=== PATIENT | male | born 1995 ===

== ENCOUNTER 2017-12-10 15:13 | Observation (INO) | payer OTHER ==
[2017-12-10 17:18] LABS: ABS Basophils 0 10^3/ul (0-0.2); ABS Eosinophils 0 10^3/ul (0-0.6); ABS Lymphocytes 0.6 10^3/ul (1.0-4.8); ABS Monocytes 0.5 10^3/ul (0-0.8); ABS Neutrophils 12.5 10^3/ul (1.5-7.7); ABS Nucleated RBC 0.1 10^3/ul; Eosinophil % 0.1 % (0-6); Hematocrit 45 % (42-52); Hemoglobin 15.7 g/dl (14.0-18.0); Lymphocyte % 4.6 % (25-47); Mean Corpuscular HGB Conc 35 g/dl (31-36); Mean Corpuscular Hemoglobin 31 pg (27-31); Mean Corpuscular Volume 86 fL (80-94); Mean Platelet Volume 7.7 um3 (7.4-10.4); Nucleated Red Blood Cells % 0.4; Platelet Count 173 10^3/ul (150-450); Red Blood Count 5.15 10^6/ul (4.00-5.40); Red Cell Distribution Width 13 % (10.5-15); White Blood Count 13.7 10^3/ul (3.5-10.8)
[2017-12-10 17:23] LABS: EGFR Non-African American 94.3 (>60)
[2017-12-10] MEDS ORDERED: NS 0.9% 1000 ML* 1,000 ML IV ONE (20:40)
[2017-12-10] MEDS ORDERED: Morphine VIAL* 10 MG/ML 1 ML VIAL IV ONE (20:40)
[2017-12-10] MEDS ORDERED: Ondansetron INJ* 2 MG/ML VIAL IV ONE (20:40)
[2017-12-10] MEDS ORDERED: Iohexol 300* (CONTRAST) 10 ML SDV IV ONE (20:49)
[2017-12-10 21:13] LABS: Urine Appearance Clear; Urine Blood Negative (Negative); Urine Color Straw; Urine Ketones Negative (Negative); Urine Protein Negative (Negative); Urine Specific Gravity 1.011 (1.010-1.030); Urine Urobilinogen Negative (Negative)
[2017-12-10] MEDS ORDERED: Morphine INJ* 4 MG/ML 1 ML SYRINGE (NEW SYRINGE VERSION) ONE (21:24)
--- NOTE | 2017-12-10 21:50 | RAD ---
EXAM: CT Abdomen and Pelvis With Intravenous Contrast EXAM DATE/TIME: 12/10/2017 9:06 PM CLINICAL HISTORY: 22 years old, male; Pain; Abdominal pain; Generalized; Additional info: Rlq pain TECHNIQUE: Axial computed tomography images of the abdomen and pelvis with intravenous contrast. All CT scans at this facility use at least one of these dose optimization techniques: automated exposure control; mA and/or kV adjustment per patient size (includes targeted exams where dose is matched to clinical indication); or iterative reconstruction. Coronal and sagittal reformatted images were created and reviewed. CONTRAST: 100 ml of OMNI 300 administered intravenously. COMPARISON: No relevant prior studies available. FINDINGS: Lower thorax: No acute findings. ABDOMEN: Liver: Normal. No mass. Gallbladder and bile ducts: Normal. No calcified stones. No ductal dilation. Pancreas: Normal. No ductal dilation. Spleen: Normal. No splenomegaly. Adrenals: Normal. No mass. Kidneys and ureters: Normal. No hydronephrosis. Stomach and bowel: Incompletely distended grossly normal stomach. Normal caliber small bowel. No colonic masses or segmental wall thickening. Appendix: Dilated distal appendix measuring up to 1.2 cm which is thick walled and shows mild adjacent periappendiceal inflammatory stranding. No periappendiceal encapsulated fluid collections. PELVIS: Bladder: Thin-walled bladder with no focal nodularity, perivesicular stranding, or calcifications. Reproductive: Normal sized prostate. Normal seminal vesicles. ABDOMEN and PELVIS: Intraperitoneal space: Normal. No free air. No significant fluid collection. Bones/joints: No fractures. No suspicious bone lesions. Soft tissues: Normal. No hernias. Vasculature: Normal caliber aorta with no evidence of dissection or rupture. Patent IVC. Lymph nodes: Normal. No enlarged lymph nodes. IMPRESSION: Acute uncomplicated appendicitis. To contact [facility] with a general question: Operations Center - [phone] For direct physician to physician contact: Physician Hotline - [phone] [facility] ([facility] Facility ID #[id number])
--- NOTE | 2017-12-10 21:59 | ED ---
Abdominal Pain/Male - HPI Summary HPI Summary: Patient complains of sudden onset right lower quadrant pain, nausea, dry heaves starting this morning when he woke up. Abdominal pain described as sharp, constant. Denies fever, cough, sore throat, CP, SOB, change in urine, change in BM, penile discharge or pain, testicular pain/redness/swelling. Medical history is none. Abdominal/surgical history is none. - History of Current Complaint Chief Complaint: EDAbdPain Stated Complaint: RT SIDE ABD PAIN Time Seen by Provider: 12/10/17 20:27 Hx Obtained From: Patient Onset/Duration: Sudden Onset Timing: Constant Severity Initially: Moderate Severity Currently: Moderate Pain Intensity: 7 Pain Scale Used: 0-10 Numeric Location: Discrete At: RLQ Radiates: No Character: Sharp Aggravating Factor(s): Nothing Alleviating Factor(s): Nothing - Allergies/Home Medications Allergies/Adverse Reactions: Allergies Allergy/AdvReac Type Severity Reaction Status Date / Time No Known Allergies Allergy Verified 12/10/17 15:58 Home Medications: Home Medications NK [No Home Medications Reported] 12/10/17 [History Confirmed 12/10/17] PMH/Surg Hx/FS Hx/Imm Hx Endocrine/Hematology History: Denies: Hx Anticoagulant Therapy, Hx Diabetes Cardiovascular History: Denies: Hx Cardiac Arrest, Hx Hypertension History: Reports: Hx Dialysis Sensory History: Denies: Hx Contacts or Glasses Neurological History: Denies: Hx CVA - Immunization History Date of Tetanus Vaccine: utd Date of Influenza Vaccine: none Infectious Disease History: No Infectious Disease History: Denies: Traveled Outside the [place] in Last 30 Days - Social History Alcohol Use: Occasionally Substance Use Type: Reports: None Smoking Status (MU): Never Smoked Tobacco Review of Systems Constitutional: Negative Eyes: Negative ENT: Negative Cardiovascular: Negative Respiratory: Negative Positive: Abdominal Pain, Vomiting, Nausea Genitourinary: Negative Musculoskeletal: Negative Skin: Negative Neurological: Negative Psychological: Normal All Other Systems Reviewed And Are Negative: Yes Physical Exam Triage Information Reviewed: Yes Vital Signs On Initial Exam: Initial Vitals Temp Pulse Resp BP Pulse Ox 99.1 F 65 16 138/86 98 12/10/17 15:55 12/10/17 15:55 12/10/17 15:55 12/10/17 15:55 12/10/17 15:55 Vital Signs Reviewed: Yes Appearance: Positive: Well-Appearing Skin: Positive: Warm Head/Face: Positive: Normal Head/Face Inspection Eyes: Positive: Normal Neck: Positive: Supple Respiratory/Lung Sounds: Positive: Clear to Auscultation Cardiovascular: Positive: Normal Abdomen Description: Positive: [place] Tenderness Musculoskeletal: Positive: Normal Neurological: Positive: Normal Psychiatric: Positive: Normal AVPU Assessment: Alert - [place] Coma Scale Best Eye Response: 4 - Spontaneous Best Motor Response: 6 - Obeys Commands Best Verbal Response: 5 - Oriented Coma Scale Total: 15 Diagnostics - Vital Signs Vital Signs Temp Pulse Resp BP Pulse Ox 12/10/17 21:31 18 12/10/17 17:21 99.7 F 66 18 138/76 98 12/10/17 15:55 99.1 F 65 16 138/86 98 - Laboratory Lab Results: Lab Results 12/10/17 12/10/17 12/10/17 Range/Units 16:36 16:57 16:57 WBC 13.7 H (3.5-10.8) 10^3/ul RBC 5.15 (4.00-5.40) 10^6/ul Hgb 15.7 (14.0-18.0) g/dl Hct 45 (42-52) % MCV 86 (80-94) fL MCH 31 (27-31) pg MCHC 35 (31-36) g/dl RDW 13 (10.5-15) % Plt Count 173 (150-450) 10^3/ul MPV 7.7 (7.4-10.4) um3 Neut % (Auto) 91.5 H (38-83) % Lymph % (Auto) 4.6 L (25-47) % [place] % (Auto) 3.6 (0-7) % Eos % (Auto) 0.1 (0-6) % Baso % (Auto) 0.2 (0-2) % Absolute Neuts (auto) 12.5 H (1.5-7.7) 10^3/ul Absolute Lymphs (auto) 0.6 L (1.0-4.8) 10^3/ul Absolute Monos (auto) 0.5 (0-0.8) 10^3/ul Absolute Eos (auto) 0 (0-0.6) 10^3/ul Absolute Basos (auto) 0 (0-0.2) 10^3/ul Absolute Nucleated RBC 0.1 10^3/ul Nucleated RBC % 0.4 Sodium 137 (135-145) mmol/L Potassium 4.3 (3.5-5.0) mmol/L Chloride 101 (101-111) mmol/L Carbon Dioxide 29 (22-32) mmol/L Anion Gap 7 (2-11) mmol/L BUN 9 (6-24) mg/dL Creatinine 1.00 (0.67-1.17) mg/dL Est GFR ( Amer) 114.1 (>60) Est GFR (Non-Af Amer) 94.3 (>60) BUN/Creatinine Ratio 9.0 (8-20) Glucose 108 H (70-100) mg/dL Calcium 9.9 (8.6-10.3) mg/dL Total Bilirubin 0.80 (0.2-1.0) mg/dL AST 23 (13-39) U/L ALT 25 (7-52) U/L Alkaline Phosphatase 111 H (34-104) U/L C-Reactive Protein 4.23 (<8.01) mg/L Total Protein 7.4 (6.4-8.9) g/dL Albumin 5.0 (3.2-5.2) g/dL Globulin 2.4 (2-4) g/dL Albumin/Globulin Ratio 2.1 (1-3) Lipase 14 (11.0-82.0) U/L Urine Color Straw Urine Appearance Clear Urine pH 7.0 (5-9) Ur Specific [place] 1.011 (1.010-1.030) Urine Protein Negative (Negative) Urine Ketones Negative (Negative) Urine Blood Negative (Negative) Urine Nitrate Negative (Negative) Urine Bilirubin Negative (Negative) Urine Urobilinogen Negative (Negative) Ur Leukocyte Esterase Negative (Negative) Urine Glucose Negative (Negative) Result Diagrams: 12/10/17 16:57 12/10/17 16:57 Lab Statement: Any lab studies that have been ordered have been reviewed, and results considered in the medical decision making process. - CT ab/pel CT Interpretation: Positive (See Comments) - appendicitis CT Interpretation Completed By: Radiologist - Ultrasound No standard instances Ultrasound Interpretation: No Acute Changes - US GB Ultrasound Interpretation Completed By: Radiologist Abdominal Pain Fem Course/Dx - Course Course Of Treatment: Patient complains of sudden onset right lower quadrant pain , nausea, dry heaves starting this morning when he woke up. Abdominal pain described as sharp, constant. Denies fever, cough, sore throat, CP, SOB, change in urine, change in BM, penile discharge or pain, testicular pain/redness /swelling. Medical history is none. Abdominal/surgical history is none. Physical exam:. Positive right lower quadrant pain. WBC 13.7. Labs otherwise unremarkable. Vital signs within normal limits. CT abdomen and pelvis positive for appendicitis. We'll admit to Dr. Arrieta. Started on Zosyn IV. - Diagnoses Provider Diagnoses: Appendicitis Discharge - Sign-Out/Discharge Documenting (check all that apply): Patient Departure - Discharge Plan Condition: Stable Disposition: ADMITTED TO [facility] - Billing Disposition and Condition Condition: STABLE Disposition: Admitted to [facility]
[2017-12-10] MEDS ORDERED: Piperacillin/Tazobac ADVAN(*) 3.375 GM in NS 0.9% 100 ML* 100 ML IVPB ONE (22:02)
--- NOTE | 2017-12-10 22:06 | RAD ---
EXAM: US Abdomen Limited, Right Upper Quadrant EXAM DATE/TIME: 12/10/2017 9:46 PM CLINICAL HISTORY: 22 years old, male; Pain; Abdominal pain; Acute; Patient HX: Ruq pain nausea; Additional info: + murphys TECHNIQUE: Real-time ultrasound of the abdomen with image documentation. Examination was focused on the right upper quadrant. COMPARISON: A/P W CT ABD/PEL W 12/10/2017 9:06 PM FINDINGS: Liver: Normal liver echogenicity and size with no focal lesions. Normal hepatopetal portal vein flow. Gallbladder: No gallstones, wall thickening, pericholecystic fluid, or sonographic Miller's sign. Common bile duct: CBD measures 0.3 cm. Pancreas: Pancreatic head through proximal tail are well visualized showing no focal lesions or main ductal dilation. Distal tail is shadowed by overlying bowel gas. Right kidney: Right kidney measures 10.5 x 4.1 x 3.5 cm (79 cc). No solid cortical lesions, calculi, or pelvocaliectasis. IMPRESSION: No sonographic findings to correlate with patient's symptomatology. To contact [facility] with a general question: Operations Center - [phone] For direct physician to physician contact: Physician Hotline - [phone] [facility] ([facility] Facility ID #[id number])
[2017-12-10] MEDS ORDERED: Bupivacaine 0.25% W/EPI* 10 ML SDV ONE (22:34)
[2017-12-10] MEDS ORDERED: Midazolam* 1 MG/ML 2 ML VIAL (2 MG) ONE (22:54)
[2017-12-10] MEDS ORDERED: fentaNYL* 50 MCG/ML 2 ML VIAL (100 MCG VIAL) ONE (22:54)
[2017-12-10] MEDS ORDERED: Mivacurium Chloride* 20 MG/10 ML VIAL IV ONE (22:58)
[2017-12-10] MEDS ORDERED: Famotidine IV* 10 MG/ML 2 ML (20 mg) ONE (23:11)
[2017-12-10] MEDS ORDERED: Dexamethasone IV* 4 MG/ML 1 ML (4 MG) ONE (23:11)
[2017-12-10] MEDS ORDERED: Lidocaine 2% PF * 5 ML VIAL ONE (23:11)
[2017-12-10] MEDS ORDERED: Propofol* 10 MG/ML 20 ML BTL IV PUSH ONE (23:11)
[2017-12-10] MEDS ORDERED: Buffered Lidocaine 0.9% SYRIN* 5 ML/SYR SYRINGE INTRADERM ONE (23:16)
[2017-12-10] MEDS ORDERED: Acetaminophen TAB* 325 MG PO PRN (23:17)
[2017-12-10] MEDS ORDERED: Naloxone* 0.4 MG/ML 1 ML VIAL IV PRN (23:17)
[2017-12-10] MEDS ORDERED: Ondansetron INJ* 2 MG/ML VIAL IV PRN (23:17)
[2017-12-10] MEDS ORDERED: HYDROcodone/ACETAMIN 5-325 MG* 1 TAB PO PRN ×2 (23:17)
[2017-12-10] MEDS ORDERED: fentaNYL* 50 MCG/ML 2 ML VIAL (100 MCG VIAL) IV PRN (23:17)
[2017-12-10] MEDS ORDERED: PROCHLORPERAZINE INJ 5 MG/ML 2 ML VIAL IV PRN (23:17)
[2017-12-10] MEDS ORDERED: DiMENhydriNATE IV* 50 MG/ML VIAL IV PUSH PRN (23:17)
[2017-12-11] MEDS ORDERED: Ketorolac INJ* 30 MG/ML 1 ML VIAL ONE (00:19)
[2017-12-11] MEDS ORDERED: HYDROmorphone INJ1* 1 MG/ML SYRINGE IV PRN (00:33)
[2017-12-11] MEDS ORDERED: Ondansetron INJ* 2 MG/ML VIAL IV PRN (00:33)
--- NOTE | 2017-12-11 00:33 | BRIEFOPN ---
Brief Operative Note - Surgery Procedures: Pre-OP Diagnoses: acute appendicitis Post-op Diagnosis: same Procedure: Laparoscopic appendectomy Surgeon: Berny Asst: none Anethesia: SHARMINA EBL: minimal IVF: crystalloid Specimen: appendix Drains: none
--- NOTE | 2017-12-11 01:14 | HP ---
CC: [facility] * HISTORY AND PHYSICAL: DATE OF ADMISSION: 12/10/17 HISTORY OF PRESENT ILLNESS: Mr. Ugarte is a 22-year-old [employer] senior who presented to the emergency room today with complaints of right-sided abdominal pain that started this morning. It was accompanied with nausea but no episodes of vomiting. No fevers or chills. The patient denied any previous similar symptoms. Did have decreased appetite for much of the day. Appetite returned briefly somewhere in the midday but now again he does not feel hungry. When I initially saw him in the waiting room, the patient overall complained about pain in the mid abdomen to right lower quadrant, but it had been starting to move in the direction of the right lower quadrant. The patient went into the emergency room where he was evaluated by the ER doctors and underwent a CT scan of the abdomen and pelvis. These images were reviewed. He also underwent an ultrasound, he had labs, and these were all reviewed. PAST MEDICAL HISTORY: None. PAST SURGICAL HISTORY: None. MEDICATIONS: None. ALLERGIES: No known drug allergies. FAMILY HISTORY: No family history of inflammatory bowel disorders. SOCIAL HISTORY: Nonsmoker. Denies any IV drug abuse. 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 REVIEW OF SYSTEMS: No shortness of breath, no chest pain. No fevers or chills. No bleeding or clotting disorders. No endocrine disorders. The patient works out doing boxing. PHYSICAL EXAMINATION GENERAL: Alert and oriented x3. No apparent distress. VITAL SIGNS: He is afebrile, blood pressure 134/80, heart rate 76. HEENT: Normocephalic, atraumatic. Sclerae anicteric. Mucous membranes are moist. NECK: No lymphadenopathy. LUNGS: Clear to auscultation bilaterally. ABDOMEN: Soft, nondistended. Tender only on deep palpation of right lower quadrant. Negative Rovsing's. EXTREMITIES: Within normal limits. No pitting edema. RECTAL: Exam is not performed. DIAGNOSTIC STUDIES/LAB DATA: Labs reviewed show a white count of 13.7 with left shift. Chemistry panel normal, mildly elevated alk phos. Urinalysis normal. Patient underwent a CT scan of the abdomen and pelvis, these images as well as report reviewed. It is consistent with a dilated appendix with periappendiceal inflammatory changes consistent with acute appendicitis. There was no evidence of abscess. IMPRESSION: Acute appendicitis with no improvement with observation and bowel rest. PLAN/RECOMMENDATIONS: My recommendation was laparoscopic appendectomy. I outlined the details of the procedure to the patient; he wishes to proceed. We spoke of the alternatives of watchful waiting. The patient wishes to undergo surgical intervention. We spoke of the possible complications, which include, not limited to bleeding, infection, bowel injury, bladder injury, need for additional procedures or open procedures, and possibility of abscess formation. The patient's questions were answered and he received a dose of antibiotics. He will go to the operating room for laparoscopic appendectomy with a planned admission in the overnight, the patient is aware. [id number]/[facility] #: [id number] MTDD
[2017-12-11] MEDS: oxyCODONE/Acetamin 5/325 MG* TAB PO PRN ×2 (02:06→06:04)
[2017-12-11 08:22] VITALS: BP 123/70
[2017-12-11] MEDS ORDERED: Ibuprofen TAB* 600 MG PO PRN (08:27)
[2017-12-11] MEDS ORDERED: oxyCODONE/Acetamin 5/325 MG* TAB PO PRN (08:27)
--- NOTE | 2017-12-11 09:39 | PN ---
Progress Note - Progress Note Date of Service: 12/11/17 Note: S: Some pain. Not entirely controlled after one Percocet. Has only had water since surgery. Would like to eat. O: Vital Signs - 8 hr 12/11/17 12/11/17 12/11/17 01:59 02:06 02:28 Temperature 99.1 F 98.5 F Pulse Rate 68 56 Respiratory 16 16 16 Rate Blood Pressure 145/71 124/62 (mmHg) O2 Sat by Pulse 98 98 Oximetry 12/11/17 12/11/17 12/11/17 04:06 04:28 06:04 Temperature 98.3 F Pulse Rate 55 Respiratory 16 16 16 Rate Blood Pressure 127/54 (mmHg) O2 Sat by Pulse 97 Oximetry 12/11/17 07:49 Temperature 97.9 F Pulse Rate 76 Respiratory 16 Rate Blood Pressure 123/70 (mmHg) O2 Sat by Pulse 97 Oximetry Intake and Output Last 24 Hours 12/09/17 12/10/17 12/11/17 12/12/17 06:59 06:59 06:59 06:59 Intake Total 0 Output Total 300 Balance 1770 Weight 179 lb Intake: IV Fluids 1950 LR 1100 Oral 120 Output: Urine 300 Heart: reg Lungs: clear ant Abd: +BS; mildly distended. Soft; mild to moderate incisional and RLQ tenderness. A: s/p lap appy for acute, nonruptured appendicitis P: home later this a.m. after he tries diet; instructions reviewed
--- NOTE | 2017-12-12 08:40 | OP ---
CC: [facility]; [facility] * DATE OF OPERATION: 12/10/17 - ROOM #331 DATE OF : [birth year] SURGEON: Danny Arrieta MD COMMERCIAL [employer] BUILDING DESIGNER: None. ANESTHESIOLOGIST: Dr. Tompkins. ANESTHESIA: General anesthesia. PRE-OP DIAGNOSIS: Acute appendicitis. POST-OP DIAGNOSIS: Acute appendicitis. OPERATIVE PROCEDURE: Laparoscopic appendectomy. ESTIMATED BLOOD LOSS: Minimal blood loss. FLUIDS: Minimal crystalloid fluid given. SPECIMEN: Appendix, nonperforated. DRAINS: None. DESCRIPTION OF PROCEDURE: The patient was identified in the preoperative area, marked, consent was signed after discussion of the case in a standard fashion. The patient was taken to the operating room, placed on the operating table in supine position. Preoperative antibiotics given, sequential devices were placed on bilateral lower extremities. General anesthesia was induced. The patient's abdomen was prepped and draped in a standard surgical fashion and a time-out was performed. An infraumbilical incision was made. The skin was then grasped and elevated anteriorly and a Veress needle was inserted into the abdominal cavity. The abdomen was then allowed to insufflate to a pressure of 15 mmHg. Veress needle was removed and a 12-mm trocar was inserted in its place. Laparoscope was inserted through this and there was no evidence of injury from the trocar insertion. Two additional 5-mm trocars were placed in the suprapubic area in the left lower quadrant. Attention was turned to his right lower quadrant. Acute appendicitis was identified with the tip of the appendix extended along the lateral aspect of the cecum. We moved the small bowel out of the way until we could see the cecal cap. The ligament of Treitz was lifted up and we did additional sharp dissection along the base of the appendix where it had normal attachments to the lateral abdominal wall. Once this was cut, we were able to lift the appendix that was indurated but not perforated up into the midline. A window was made at the base of the appendix and a 45-mm colin RICHIE stapling device was fired to the mesoappendix. Additional cautery and sharp dissection was utilized to clear off the base of the appendix and a 45-mm sesay RICHIE stapling device was fired across this through a healthy tissue. The appendix was then placed in an endoscopic retrieval bag. Attention was turned to the staple line. There was no evidence of bleeding or enteric contents. The staple lines were intact without any evidence of crushing of the tissue. Raytec was then placed into the site to dab the minimal amount of blood at the initial dissection site. This was unremarkable and not part of the staple line and we noted that hemostasis was excellent and now this did not rebleed. This 4x8 was removed and an additional 4x8 was placed into the pelvis where some thin acidic fluid was observed. This did not appear purulent and cultures were not taken. This gauze was removed as well. We then next removed the appendix and the endoscopic retrieval bag through the umbilical port site, passed it off as specimen. We then used an 0 Polysorb suture using an EndoClose device to close the fascia at the umbilical site. The abdomen was allowed to collapse. Trocars were removed under vision, and all three skin incisions were reapproximated with 4-0 Monocryl subcuticular sutures followed by Steri-Strips and sterile dressing. The patient was woken up and transferred to the PACU in stable condition. [id number]/[facility] #: [id number] EVER
--- NOTE | 2017-12-14 10:34 | DS ---
DISCHARGE SUMMARY: DATE OF ADMISSION: 12/10/17 DATE OF DISCHARGE: 12/11/17 ATTENDING SURGEON: Danny Arrieta MD * (MARCUS Alcaraz, dictating). HOSPITAL COURSE: Please refer to admission history and physical and operative note for details. Briefly, the patient was taken to the operating room the evening of 12/10/17 and underwent laparoscopic appendectomy for acute non- ruptured appendicitis with Dr. Arrieta. He had an otherwise uneventful postoperative course. The following morning, diet was advanced and his pain was well controlled with oral pain medications. PHYSICAL EXAMINATION: Vital signs on the morning of discharge, temperature 97.9 , blood pressure 123/70, pulse 76, respirations 16, room air saturation 97%. General: Well nourished, well developed and in no acute distress. Heart: Regular rate and rhythm. Lungs: Clear to auscultation anteriorly. Abdomen: Bowel sounds are present. Mildly distended, soft, mild to moderate incisional and right lower quadrant tenderness. IMPRESSION: Status post laparoscopic appendectomy for acute non-ruptured appendicitis, doing well. PLAN: To home today. Instructions were reviewed regarding wound care, diet, and activity. A prescription was sent to his pharmacy for Percocet. He will also use Tylenol and/or ibuprofen p.r.n. for mild to moderate pain. He will be scheduled for followup in our office within approximately 1 week. MARCUS ALCARAZ [id number]/[facility] #: [id number] [facility] HOSPITALPatrick
== END 2017-12-11 11:25 | disposition home or self-care (01) ==
LOC: ED 15:13 → OR 22:33 → SSU 22:36 → INTOOBSV 12-11 01:55 → SSU 12-11 01:55 → UNDOADMOB 12-11 01:55 → UNDODISOB 12-11 11:25
PROVIDERS: ADMIT Surgery; ATTEND Surgery
DX: K35.80 Unspecified acute appendicitis (principal); R10.31 Right lower quadrant pain
CPT/HCPCS: 36415; 74177; 76705; 80053; 81003; 83690; 85025; 86140; 88304; 96365; 96375; 96376; 99284; A9270-GY; C1776; G0378; J1100; J1885; J2250; J2270; J2405; J2543; J2704; J3010; Q9967